=== PATIENT | female | born 1985 | race Caucasian/White ===

== ENCOUNTER 2017-07-05 22:37 | Emergency (ER) | payer BC ==
[~2017-07-05] VITALS: Ht 175.3 cm; Wt 63.6 kg
[2017-07-05] MEDS ORDERED: XANA0.5T PO (22:45)
[2017-07-05] MEDS ORDERED: ADACEL/BOOSTRIX VACCINE (DIPHTH/PERTUSS/ACELL/TETANUS)0.5ML SYR (90715) IM ONE (23:30)
[2017-07-05] MEDS ORDERED: DOXYCYCLINE HYCLATE 100 MG TAB PO ONE (23:30)
[2017-07-05 23:52] VITALS: BP 150/82
== END 2017-07-05 23:54 | disposition short-term general hospital (02) ==
LOC: M ED 22:37
DX: S01.21XA Laceration without foreign body of nose, initial encounter (principal); W54.0XXA Bitten by dog, initial encounter; Y92.89 Other specified places as the place of occurrence of the external cause; Y93.89 Activity, other specified; Y99.8 Other external cause status; Z88.0 Allergy status to penicillin; Z88.2 Allergy status to sulfonamides